=== PATIENT | female | born 2000 | race Hispanic/Latino ===

== ENCOUNTER 2019-04-17 17:43 | Emergency (ER) | payer OTHER ==
[~2019-04-17] VITALS: Ht 170.2 cm; Wt 85.7 kg
[2019-04-17] MEDS ORDERED: ULTRAM50 MG PO (18:43)
== END 2019-04-17 18:58 | disposition home or self-care (01) ==
LOC: ED 17:43
DX: K60.2 Anal fissure, unspecified (principal)
CPT/HCPCS: 99283